=== PATIENT | male | born 1985 | race Two or more races ===

== ENCOUNTER 2018-01-03 13:48 | Emergency (ER) | payer MEDICAID ==
[~2018-01-03] VITALS: Ht 170.2 cm; Wt 90.0 kg
[2018-01-03] MEDS ORDERED: IBUPROFEN 800MG TABLET PO ONE (15:30)
[2018-01-03 15:46] VITALS: BP 155/75
== END 2018-01-03 15:45 | disposition home or self-care (01) ==
LOC: ER 13:48
DX: K04.7 Periapical abscess without sinus (principal); L03.211 Cellulitis of face; Z90.49 Acquired absence of other specified parts of digestive tract
CPT/HCPCS: 99283

== ENCOUNTER 2018-01-29 10:33 | Emergency (ER) | payer MEDICAID ==
[~2018-01-29] VITALS: Ht 170.2 cm; Wt 82.0 kg
[2018-01-29 10:38] VITALS: BP 124/73
== END 2018-01-29 12:21 | disposition home or self-care (01) ==
LOC: ER 11:49
DX: B97.11 Coxsackievirus as the cause of diseases classified elsewhere (principal); Z90.89 Acquired absence of other organs
CPT/HCPCS: 99282

== ENCOUNTER 2019-03-04 14:16 | Emergency (ER) | payer MEDICAID ==
[~2019-03-04] VITALS: Ht 170.2 cm; Wt 85.5 kg
[2019-03-04] MEDS ORDERED: claritin (15:17)
[2019-03-04] MEDS ORDERED: flonase (15:17)
[2019-03-04] MEDS ORDERED: OXYMETAZOLINE HCL NASAL SPRAY 15ML BOTHNSTRLS ONE (21:30)
[2019-03-04 21:41] VITALS: BP 128/88
== END 2019-03-04 21:42 | disposition home or self-care (01) ==
LOC: ER 14:16
DX: R22.0 Localized swelling, mass and lump, head (principal); R09.81 Nasal congestion; Z90.49 Acquired absence of other specified parts of digestive tract
CPT/HCPCS: 99281